=== PATIENT | female | born 1950 | race Caucasian/White ===

== ENCOUNTER 2018-08-18 17:31 | Inpatient (IN) ==
[2018-08-18] MEDS ORDERED: SODIUM CHLORIDE 0.9% 1,000 ML IV STA ×2 (18:13→22:22)
[2018-08-18] MEDS ORDERED: ACETAMINOPHEN 500 MG TABLET PO STA (18:44)
[2018-08-18 18:52] LABS: Basophils % 0.3 % (0.0-0.8); Eosinophils % 0.1 % (0.00-10.9); Hematocrit 48.1 VOL% (35.7-47.0); Immature Granulocytes % 0.5 %; Immature Granulocytes Absolute 0.05 #; Lymphocytes # 0.4 10*3/uL (1.4-4.0); Lymphocytes % 3.5 % (21.3-54.2); Mean Corpuscular HGB Conc 33.3 GM/DL (32-36); Mean Corpuscular Hemoglobin 28 PG (27-34); Mean Corpuscular Volume 85.1 FL (87-102); Monocytes # 0.7 10*3/uL (0.11-0.8); Monocytes % 6.6 % (1.7-12.7); Neutrophils # 9.3 10*3/uL (1.4-7.4); Platelet Count 150 T/CUMM (130-400); Red Blood Count 5.65 MC/CUMM (3.8-5.5); Red Cell Distribution Width 13.5 % (9.3-17.3); White Blood Count 10.4 T/CUMM (4-12)
[2018-08-18 19:21] LABS: Albumin 2.8 G/DL (3.4-5.0); Calcium 7.8 MG/DL (8.5-10.1); Osmolality,Calculated 281.8 MOS/KG (273-304); Potassium 3.4 MMOL/L (3.5-5.1)
[2018-08-18 19:25] LABS: Lymphocytes 3 % (20-55); Segmented Neutrophils 93 % (50-85)
[2018-08-18 19:26] LABS: Platelet Estimate Decreased; Total Cells Counted 100
[2018-08-18 19:27] LABS: Macrocytosis Slight; Microcytosis Slight; Poikilocytosis Slight
[2018-08-18 19:34] LABS: VBG HCO3 23.6 MEQ/L (24-28); VBG Oxygen Saturation 99.9 %; VBG PCO2 37.2 MMHG (41-51); VBG PH 7.405
[2018-08-18] MEDS ORDERED: ALBUTEROL/IPRATROPIUM 3 ML NEB RESP TX PRN (19:46)
[2018-08-18] MEDS ORDERED: cefTRIAXone 1,000 MG in SYRINGE 1 EACH IV SCH (19:50)
[2018-08-18 20:22] LABS: Apearance,Urine Clear (Clear); Glucose,Urine (UA) >=1000 mg/dL (Negative); Ketones,Urine Negative (Negative); Protein,Urine 30 MG/DL
[2018-08-18 20:23] LABS: Bilirubin,Urine Negative (Negative); Blood, Urine Negative (Negative); Nitrite,Urine Negative (Negative); Urine Urobilinogen < 2.0 EU/DL (0.2-1.0)
[2018-08-18 20:24] LABS: Urine Color Light Yellow (Yellow)
[2018-08-18] MEDS ORDERED: ONDANSETRON 4 MG/2 ML VIAL IV PRN (20:33)
[2018-08-18] MEDS ORDERED: DEXTROSE 50% 25 GM/50 ML VIAL IV PRN (20:33)
[2018-08-18] MEDS ORDERED: ZALEPLON 5 MG CAPSULE PO PRN (20:33)
[2018-08-18] MEDS ORDERED: GLUCAGON 1 MG VIAL IM PRN (20:33)
[2018-08-18] MEDS ORDERED: DOCUSATE SODIUM 100 MG CAPSULE PO PRN (20:33)
[2018-08-18] MEDS ORDERED: MAGNESIUM SULF RIDER 2 GM in PREMIX 1 EACH IV PRN (20:37)
[2018-08-18] MEDS ORDERED: MAGNESIUM SULF RIDER 4 GM in PREMIX 1 EACH IV PRN (20:37)
[2018-08-18] MEDS: AZITHROMYCIN INJ 500 MG in SODIUM CHLORIDE 0.9% 250 ML IV SCH (20:38)
[2018-08-18] MEDS: INSULIN REGULAR 100 UNIT/ML SUBCUT SCH (21:13)
[2018-08-18] MEDS: SODIUM CHLORIDE 0.9% 1,000 ML IV SCH (21:41)
[2018-08-18] MEDS: ENOXAPARIN 30 MG/0.3 ML SYRINGE SUBCUT SCH (21:43)
[2018-08-18] MEDS: AMITRIPTYLINE 50 MG TABLET PO SCH (23:44)
[2018-08-18] MEDS: PREGABALIN 75 MG CAPSULE PO SCH (23:44)
[2018-08-19 04:17] LABS: Osmolality,Calculated 288.1 MOS/KG (273-304); Potassium 3.1 MMOL/L (3.5-5.1)
[2018-08-19 04:32] LABS: Basophils % 0.2 % (0.0-0.8); Eosinophils % 0.2 % (0.00-10.9); Hematocrit 30.7 VOL% (35.7-47.0); Immature Granulocytes % 1.1 %; Immature Granulocytes Absolute 0.14 #; Lymphocytes # 0.9 10*3/uL (1.4-4.0); Lymphocytes % 6.5 % (21.3-54.2); Mean Corpuscular HGB Conc 32.9 GM/DL (32-36); Mean Corpuscular Hemoglobin 29 PG (27-34); Mean Corpuscular Volume 88.5 FL (87-102); Mean Platelet Volume 9.7 FL (9.6-12.0); Monocytes # 1.4 10*3/uL (0.11-0.8); Monocytes % 10.5 % (1.7-12.7); Neutrophils # 10.6 10*3/uL (1.4-7.4); Neutrophils % 81.5 % (38.7-73.9); Red Cell Distribution Width 13.7 % (9.3-17.3)
[2018-08-19 04:38] LABS: Red Blood Count 3.47 MC/CUMM (3.8-5.5)
[2018-08-19 04:39] LABS: Hemoglobin 10.1 GM/DL (12.0-16.0); Platelet Count 210 T/CUMM (130-400)
[2018-08-19] MEDS: ALBUTEROL/IPRATROPIUM 3 ML NEB RESP TX SCH ×4 (08:05→19:30)
[2018-08-19] MEDS: INSULIN REGULAR 100 UNIT/ML SUBCUT SCH ×4 (08:40→20:35)
[2018-08-19] MEDS: SODIUM CHLORIDE 0.9% 1,000 ML IV SCH ×3 (08:55→17:45)
[2018-08-19] MEDS ORDERED: Cyanocobalamin (Vitamin B-12) [Vitamin B-12] 5,000 MCG SL SCH (09:00)
[2018-08-19] MEDS: ACETAMINOPHEN 325 MG TABLET PO PRN ×2 (10:25→18:17)
[2018-08-19] MEDS: ANASTROZOLE 1 MG TABLET PO SCH (11:25)
[2018-08-19] MEDS: PREGABALIN 75 MG CAPSULE PO SCH ×3 (11:25→20:36)
[2018-08-19] MEDS: POTASSIUM CHLORIDE RIDER 10 MEQ in PREMIX 1 EACH IV SCH ×5 (17:12→23:47)
[2018-08-19] MEDS: PIPERACILLIN/TAZOBACTAM 3,375 MG in SODIUM CHLORIDE 0.9% 100 ML IV SCH ×2 (20:28→20:31)
[2018-08-19] MEDS: ENOXAPARIN 30 MG/0.3 ML SYRINGE SUBCUT SCH (20:31)
[2018-08-19] MEDS: INSULIN GLARGINE 100 UNIT/ML SUBCUT SCH (20:34)
[2018-08-19] MEDS: AMITRIPTYLINE 50 MG TABLET PO SCH (20:36)
[2018-08-20] MEDS: ALBUTEROL/IPRATROPIUM 3 ML NEB RESP TX SCH ×4 (00:20→19:27)
[2018-08-20] MEDS: AZITHROMYCIN INJ 500 MG in SODIUM CHLORIDE 0.9% 250 ML IV SCH (00:31)
[2018-08-20] MEDS: SODIUM CHLORIDE 0.9% 1,000 ML IV SCH ×6 (02:25→17:53)
[2018-08-20] MEDS: POTASSIUM CHLORIDE 20 MEQ TABLET PO PRN ×2 (02:47→05:36)
[2018-08-20 06:07] LABS: Basophils % 0.3 % (0.0-0.8); Eosinophils # 0.1 10*3/uL (0.0-0.87); Eosinophils % 0.9 % (0.00-10.9); Hematocrit 29.2 VOL% (35.7-47.0); Hemoglobin 9.6 GM/DL (12.0-16.0); Immature Granulocytes % 1.1 %; Immature Granulocytes Absolute 0.12 #; Lymphocytes # 0.8 10*3/uL (1.4-4.0); Lymphocytes % 7.3 % (21.3-54.2); Mean Corpuscular HGB Conc 32.9 GM/DL (32-36); Mean Corpuscular Hemoglobin 29 PG (27-34); Mean Corpuscular Volume 88.2 FL (87-102); Mean Platelet Volume 9.3 FL (9.6-12.0); Monocytes # 0.9 10*3/uL (0.11-0.8); Monocytes % 8.3 % (1.7-12.7); Neutrophils # 8.9 10*3/uL (1.4-7.4); Neutrophils % 82.1 % (38.7-73.9); Platelet Count 203 T/CUMM (130-400); Red Blood Count 3.31 MC/CUMM (3.8-5.5); Red Cell Distribution Width 13.6 % (9.3-17.3); White Blood Count 10.9 T/CUMM (4-12)
[2018-08-20] MEDS: PIPERACILLIN/TAZOBACTAM 3,375 MG in SODIUM CHLORIDE 0.9% 100 ML IV SCH (06:32)
[2018-08-20 06:34] LABS: Calcium 7.6 MG/DL (8.5-10.1); Potassium 3.1 MMOL/L (3.5-5.1)
[2018-08-20] MEDS: ANASTROZOLE 1 MG TABLET PO SCH (10:14)
[2018-08-20] MEDS: PREGABALIN 75 MG CAPSULE PO SCH ×3 (10:14→21:16)
[2018-08-20] MEDS: INSULIN REGULAR 100 UNIT/ML SUBCUT SCH ×4 (10:15→21:17)
[2018-08-20] MEDS ORDERED: POTASSIUM CHLORIDE 20 MEQ TABLET PO ONE (13:20)
[2018-08-20] MEDS: METOPROLOL TARTRATE 25 MG TABLET PO SCH ×2 (14:43→21:17)
[2018-08-20] MEDS: CEFEPIME 1,000 MG in SYRINGE 1 EACH IV SCH ×2 (14:44→21:18)
[2018-08-20] MEDS: POTASSIUM CHLORIDE RIDER 10 MEQ in PREMIX 1 EACH IV SCH ×6 (14:45→21:15)
[2018-08-20] MEDS ORDERED: LEVALBUTEROL 1.25 MG/3 ML NEB RESP TX SCH (19:57)
[2018-08-20] MEDS: LEVALBUTEROL 1.25 MG/3 ML NEB RESP TX SCH (20:20)
[2018-08-20] MEDS: ACETAMINOPHEN 325 MG TABLET PO PRN (21:16)
[2018-08-20] MEDS: ENOXAPARIN 40 MG/0.4 ML SYRINGE SUBCUT SCH (21:16)
[2018-08-20] MEDS: AMITRIPTYLINE 50 MG TABLET PO SCH (21:16)
[2018-08-20] MEDS: INSULIN GLARGINE 100 UNIT/ML SUBCUT SCH (21:17)
[2018-08-20] MEDS ORDERED: POTASSIUM CHLORIDE RIDER 10 MEQ in PREMIX 1 EACH IV SCH (21:30)
[2018-08-21] MEDS: LEVALBUTEROL 1.25 MG/3 ML NEB RESP TX SCH ×4 (01:29→19:42)
[2018-08-21] MEDS: SODIUM CHLORIDE 0.9% 1,000 ML IV SCH ×4 (02:19→09:20)
[2018-08-21 05:16] LABS: Basophils % 0.4 % (0.0-0.8); Eosinophils # 0.2 10*3/uL (0.0-0.87); Eosinophils % 1.5 % (0.00-10.9); Hematocrit 29.4 VOL% (35.7-47.0); Hemoglobin 9.2 GM/DL (12.0-16.0); Immature Granulocytes % 2.1 %; Immature Granulocytes Absolute 0.22 #; Lymphocytes # 0.7 10*3/uL (1.4-4.0); Lymphocytes % 6.9 % (21.3-54.2); Mean Corpuscular HGB Conc 31.3 GM/DL (32-36); Mean Corpuscular Hemoglobin 28 PG (27-34); Mean Corpuscular Volume 89.9 FL (87-102); Mean Platelet Volume 9.2 FL (9.6-12.0); Monocytes % 9.5 % (1.7-12.7); Neutrophils # 8.3 10*3/uL (1.4-7.4); Neutrophils % 79.6 % (38.7-73.9); Platelet Count 202 T/CUMM (130-400); Red Blood Count 3.27 MC/CUMM (3.8-5.5); Red Cell Distribution Width 14.1 % (9.3-17.3); White Blood Count 10.4 T/CUMM (4-12)
[2018-08-21 05:33] LABS: Calcium 7.2 MG/DL (8.5-10.1); Osmolality,Calculated 277.5 MOS/KG (273-304); Potassium 4.1 MMOL/L (3.5-5.1)
[2018-08-21] MEDS: CEFEPIME 1,000 MG in SYRINGE 1 EACH IV SCH ×3 (06:46→21:24)
[2018-08-21] MEDS: INSULIN REGULAR 100 UNIT/ML SUBCUT SCH ×4 (09:15→21:10)
[2018-08-21] MEDS: PREGABALIN 75 MG CAPSULE PO SCH ×3 (09:15→21:10)
[2018-08-21] MEDS: ANASTROZOLE 1 MG TABLET PO SCH (09:15)
[2018-08-21] MEDS: METOPROLOL TARTRATE 25 MG TABLET PO SCH (09:15)
[2018-08-21] MEDS ORDERED: AZITHROMYCIN INJ 500 MG in SODIUM CHLORIDE 0.9% 250 ML IV SCH (10:00)
[2018-08-21] MEDS: metFORMIN 500 MG TABLET PO SCH (21:09)
[2018-08-21] MEDS: ENOXAPARIN 40 MG/0.4 ML SYRINGE SUBCUT SCH (21:09)
[2018-08-21] MEDS: AMITRIPTYLINE 50 MG TABLET PO SCH (21:10)
[2018-08-21] MEDS: INSULIN GLARGINE 100 UNIT/ML SUBCUT SCH (21:12)
[2018-08-21] MEDS: METOPROLOL SUCCINATE XL 100 MG TABLET PO SCH (21:19)
[2018-08-22] MEDS: LEVALBUTEROL 1.25 MG/3 ML NEB RESP TX SCH ×4 (01:51→20:23)
[2018-08-22 04:40] LABS: Basophils % 0.4 % (0.0-0.8); Eosinophils # 0.3 10*3/uL (0.0-0.87); Eosinophils % 3.4 % (0.00-10.9); Hematocrit 26.9 VOL% (35.7-47.0); Hemoglobin 8.8 GM/DL (12.0-16.0); Immature Granulocytes % 2.1 %; Immature Granulocytes Absolute 0.19 #; Lymphocytes # 0.7 10*3/uL (1.4-4.0); Lymphocytes % 7.8 % (21.3-54.2); Mean Corpuscular HGB Conc 32.7 GM/DL (32-36); Mean Corpuscular Hemoglobin 29 PG (27-34); Mean Corpuscular Volume 88.8 FL (87-102); Mean Platelet Volume 9.4 FL (9.6-12.0); Monocytes # 0.9 10*3/uL (0.11-0.8); Monocytes % 9.7 % (1.7-12.7); Neutrophils % 76.6 % (38.7-73.9); Platelet Count 208 T/CUMM (130-400); Red Blood Count 3.03 MC/CUMM (3.8-5.5); Red Cell Distribution Width 14.2 % (9.3-17.3); White Blood Count 9.1 T/CUMM (4-12)
[2018-08-22 04:51] LABS: Calcium 7.1 MG/DL (8.5-10.1); Osmolality,Calculated 282.1 MOS/KG (273-304); Potassium 3.3 MMOL/L (3.5-5.1)
[2018-08-22] MEDS ORDERED: HYDROCODONE BITARTRATE 40 MG PO SCH (09:00)
[2018-08-22] MEDS: ANASTROZOLE 1 MG TABLET PO SCH (10:15)
[2018-08-22] MEDS: LOSARTAN 50 MG TABLET PO SCH (10:15)
[2018-08-22] MEDS: hydroCHLOROthiazide 12.5 MG CAPSULE PO SCH (10:16)
[2018-08-22] MEDS: INSULIN REGULAR 100 UNIT/ML SUBCUT SCH ×4 (10:16→20:43)
[2018-08-22] MEDS: metFORMIN 500 MG TABLET PO SCH ×2 (10:16→20:40)
[2018-08-22] MEDS: PREGABALIN 75 MG CAPSULE PO SCH ×3 (10:16→20:40)
[2018-08-22] MEDS: POTASSIUM CHLORIDE 20 MEQ TABLET PO SCH ×4 (10:22→20:40)
[2018-08-22] MEDS: AZITHROMYCIN 250 MG TABLET PO SCH (10:22)
[2018-08-22] MEDS: MAGNESIUM OXIDE 400 MG TABLET PO SCH ×2 (10:22→20:41)
[2018-08-22] MEDS: CEFEPIME 1,000 MG in SYRINGE 1 EACH IV SCH ×2 (10:37→15:37)
[2018-08-22] MEDS: SULFAMETHOX/TRIMETHOPRIM 400-80 MG TABLET PO SCH (20:39)
[2018-08-22] MEDS: AMITRIPTYLINE 50 MG TABLET PO SCH (20:39)
[2018-08-22] MEDS: METOPROLOL SUCCINATE XL 100 MG TABLET PO SCH (20:41)
[2018-08-22] MEDS: ENOXAPARIN 40 MG/0.4 ML SYRINGE SUBCUT SCH (20:41)
[2018-08-22] MEDS: INSULIN GLARGINE 100 UNIT/ML SUBCUT SCH (20:42)
[2018-08-23] MEDS: LEVALBUTEROL 1.25 MG/3 ML NEB RESP TX SCH ×2 (01:07→08:12)
[2018-08-23] MEDS: metFORMIN 500 MG TABLET PO SCH (08:28)
[2018-08-23] MEDS: INSULIN REGULAR 100 UNIT/ML SUBCUT SCH (08:28)
[2018-08-23] MEDS: ANASTROZOLE 1 MG TABLET PO SCH (08:29)
[2018-08-23] MEDS: SULFAMETHOX/TRIMETHOPRIM 400-80 MG TABLET PO SCH (08:29)
[2018-08-23] MEDS: LOSARTAN 50 MG TABLET PO SCH (08:29)
[2018-08-23] MEDS: PREGABALIN 75 MG CAPSULE PO SCH (08:29)
[2018-08-23] MEDS: AZITHROMYCIN 250 MG TABLET PO SCH (08:29)
[2018-08-23] MEDS: hydroCHLOROthiazide 12.5 MG CAPSULE PO SCH (08:29)
[2018-08-23] MEDS: MAGNESIUM OXIDE 400 MG TABLET PO SCH (08:30)
[2018-08-23 08:35] VITALS: BP 112/70
== END 2018-08-23 10:00 | disposition home or self-care (01) | DRG 178 ==
LOC: N.ED 17:31 → N.EDINP 19:44 → SUATTDRO 19:44 → N.5E 08-19 12:24
PROVIDERS: ADMIT Internal Medicine; ATTEND Hospitalist